=== PATIENT | female | born 1975 ===

== ENCOUNTER 2017-04-21 18:08 | Emergency (ER) | payer MEDICAID ==
[2017-04-21 18:24] VITALS: BP 117/39; PULSE 73; RESP 16; TEMP 98.1; O2SAT 96
--- NOTE | 2017-04-21 19:15 | ED PDOC ---
HPI: CCC, URI, Sore Throat Time Seen by Provider: 04/21/17 18:25 Chief Complaint (Nursing): ENT Problem Chief Complaint (Provider): ENT problem History Per: Patient History/Exam Limitations: no limitations Onset/Duration Of Symptoms: Days (x1 week) Current Symptoms Are (Timing): Still Present Location Of Pain: Ear(s) Associated Symptoms: Sore Throat (difficulty swallowing), Cough, Nasal Congestion, Other (blurry vision). denies: Fever, Chills Ear Symptoms: Bilateral: Ear Pain (popping/crackling noise w/ walking) Additional Complaint(s): Dixie Vargas is a 41 year old female, with a past medical history of bronchitis, who presents to the emergency department complaining of pain to the right side of her face and tonsils, cough, congestion, ear pain, blurry vision and difficulty swallowing onset for x1 week. Patient states she has been having difficulty breathing through her nose due to congestion. She reports hearing crackling or popping noises when she walks. She hasn't taken any pain medication. She denies any fever, chills or other medical complaints. PMD: None provided. Past Medical History Reviewed: Historical Data, Nursing Documentation, Vital Signs Vital Signs: Last Vital Signs Temp 98.1 F 04/21/17 18:21 Pulse 73 04/21/17 18:21 Resp 16 04/21/17 18:21 BP 117/39 L 04/21/17 18:21 Pulse Ox 96 04/21/17 19:30 - Medical History PMH: Bronchitis Denies: Asthma - Surgical History Surgical History: No Surg Hx - Family History Family History: States: Unknown Family Hx - Home Medications Home Medications: Ambulatory Orders Medication Instructions Recorded Famotidine [Pepcid] 20 mg PO DAILY #14 tab 10/11/15 Nitrofurantoin Macrocrystals 100 mg PO BID #14 cap 10/11/15 [Macrobid] Ondansetron ODT [Zofran ODT] 4 mg PO Q8 PRN #12 odt 10/11/15 Albuterol HFA [Ventolin HFA 90 1 puff IH ASDIR #1 unit 04/15/16 mcg/actuation (8 g)] Azithromycin [Zithromax] 250 mg PO DAILY #6 tab 04/15/16 Benzonatate 200 mg PO TID PRN #20 capsule 04/15/16 Amoxicillin/Clavulanate [Augmentin 1 tab PO BID #14 tab 04/21/17 875 MG-125 MG] Methylprednisolone [Medrol Dose 4 mg PO DAILY #21 mg 04/21/17 Pack (21 tabs)] - Allergies Allergies/Adverse Reactions: Allergies Allergy/AdvReac Type Severity Reaction Status Date / Time No Known Allergies Allergy Verified 04/21/17 18:21 Review of Systems ROS Statement: Except As Marked, All Systems Reviewed And Found Negative Constitutional: Negative for: Fever, Chills Eyes: Positive for: Other (blurry vision) ENT: Positive for: Ear Pain, Nose Congestion, Throat Pain (difficulty swallowing ) Respiratory: Positive for: Cough Physical Exam - Reviewed Nursing Documentation Reviewed: Yes Vital Signs Reviewed: Yes - Physical Exam Appears: Positive for: Non-toxic, No Acute Distress Head Exam: Positive for: ATRAUMATIC, NORMAL INSPECTION, NORMOCEPHALIC Skin: Positive for: Normal Color, Warm, Dry Eye Exam: Positive for: Normal appearance ENT: Positive for: Other (right side maxillary and ethmoid tenderness) Neck: Positive for: Normal, Painless ROM, Supple Respiratory: Negative for: Respiratory Distress Extremity: Positive for: Normal ROM. Negative for: Deformity, Swelling Neurologic/Psych: Positive for: Alert, Oriented - ECG O2 Sat by Pulse Oximetry: 96 (RA) Pulse Ox Interpretation: Normal Medical Decision Making Medical Decision Making: Initial Impression: sinusitis Initial Plan: --Augmentin 1 tab PO --reevaluation ~ Scribe Attestation: Documented by Juanito Montenegro, acting as a scribe for Beverly Oneil PA-C. Provider Scribe Attestation: All medical record entries made by the Scribe were at my direction and personally dictated by me. I have reviewed the chart and agree that the record accurately reflects my personal performance of the history, physical exam, medical decision making, and the department course for this patient. I have also personally directed, reviewed, and agree with the discharge instructions and disposition. Disposition - Clinical Impression Clinical Impression: Sinusitis - Patient ED Disposition Is Patient to be Admitted: No - Disposition Disposition: Routine/Home Disposition Time: 19:46 Condition: STABLE Prescriptions: Amoxicillin/Clavulanate [Augmentin 875 MG-125 MG] 1 tab PO BID #14 tab Methylprednisolone [Medrol Dose Pack (21 tabs)] 4 mg PO DAILY #21 mg Instructions: Sinusitis (ED) Forms: [facility] [facility] ([place]), [facility] ED School/Work Excuse
[2017-04-21] MEDS ORDERED: Amoxicillin-Clav 875-125 mg Tab PO ONE (19:38)
[2017-04-21] MEDS: Amoxicillin-Clav 875-125 mg Tab PO STA (19:41)
== END 2017-04-21 19:44 | disposition home or self-care (01) ==
LOC: H.ER 18:08
DX: J32.9 Chronic sinusitis, unspecified (principal)